=== PATIENT | male | born 1985 ===

== ENCOUNTER 2017-11-13 10:02 | Outpatient (CLI) | payer OTHER ==
[~2017-11-13] VITALS: Ht 182.9 cm; Wt 90.7 kg
[2017-11-13] MEDS ORDERED: CIPRO500 MG PO (11:10)
[2017-11-13] MEDS ORDERED: CIPRODEX OTIC7.5 ML OTIC (11:11)
[2017-11-13] MEDS ORDERED: RESTORA CAPSUL1 EACH PO (11:11)
== END 2017-11-13 10:20 | disposition home or self-care (01) ==
LOC: OFIC 805 10:02
DX: H70.13 Chronic mastoiditis, bilateral (principal); H61.21 Impacted cerumen, right ear; H74.42 Polyp of left middle ear; J31.0 Chronic rhinitis

== ENCOUNTER 2017-11-27 09:44 | Outpatient (CLI) | payer OTHER ==
[~2017-11-27] VITALS: Ht 182.9 cm; Wt 90.7 kg
[~2017-11-27 09:44] MED LIST: CIPRO500 MG PO; CIPRODEX OTIC7.5 ML OTIC; RESTORA CAPSUL1 EACH PO
== END 2017-11-27 10:00 | disposition home or self-care (01) ==
LOC: OFIC 805 09:44
DX: H70.13 Chronic mastoiditis, bilateral (principal); J31.0 Chronic rhinitis

== ENCOUNTER 2018-01-08 08:36 | Outpatient (CLI) | payer OTHER ==
[~2018-01-08] VITALS: Ht 182.9 cm; Wt 86.2 kg
== END 2018-01-08 09:00 | disposition home or self-care (01) ==
LOC: OFIC 805 08:36
DX: J31.0 Chronic rhinitis (principal); H70.13 Chronic mastoiditis, bilateral